=== PATIENT | female | born 1995 | race Hispanic/Latino ===

== ENCOUNTER 2018-06-21 15:04 | Observation (INO) | payer OTHER, MEDICAID ==
[~2018-06-21 15:04] MED LIST: PREN-196 PO; TYL3 PO
[2018-06-21] MEDS ORDERED: LACTATED RINGERS 1000ML 1,000 ML IV SCH (18:00)
[2018-06-22 07:28] LABS: APPEARANCE,URINE Clear (CLEAR); BILIRUBIN,URINE Negative (NEGATIVE); COLOR,URINE Yellow (YELLOW); GLUCOSE, URINE (UA) Negative (NEGATIVE); KETONES,URINE Negative (NEGATIVE); LEUKOCYTE ESTERASE ,URINE Moderate (NEGATIVE); NITRATE,URINE Negative (NEGATIVE); OCCULT BLOOD,URINE Negative (NEGATIVE); PH,URINE 6.5 (5.0-8.0); PROTEIN,URINE Negative (NEGATIVE); UROBILINOGEN,URINE 0.2 mg/dL (0.2-1.0)
[2018-06-22 07:52] LABS: BACTERIA,URINE Moderate /HPF (None Seen); SQUAMOUS EPITHELIAL CELL,UR 30-50 /HPF (0-2)
[2018-06-22 07:53] LABS: RBC,URINE 0-1 /HPF (0-1)
== END 2018-06-22 16:25 | disposition home or self-care (01) ==
LOC: LDH 15:04
PROVIDERS: ADMIT Obstetrics & Gynecology; ATTEND Obstetrics & Gynecology
DX: Z34.93 Encounter for supervision of normal pregnancy, unspecified, third trimester (principal); Z3A.36 36 weeks gestation of pregnancy
CPT/HCPCS: 59025; 76805; 76819; 81001; G0378 ×26; J7120 ×2; 96360; 96361

== ENCOUNTER 2018-06-28 10:30 | Inpatient (IN) | payer OTHER, MEDICAID ==
[~2018-06-28] VITALS: Ht 162.6 cm; Wt 147.4 kg
[2018-07-01 13:36] LABS: HEMATOCRIT 34.2 % (36-48); MEAN CORPUSCULAR HEMOGLOBIN 21.6 pg (27.0-33.0); MEAN CORPUSCULAR HGB CONC 31.3 g/dL (32.0-36.0); NUCLEATED RED BLOOD CELLS 0.1 % (0.0-0.19); PLATELET COUNT (AUTO) 316 K/uL (130-400); RED BLOOD CELL COUNT(AUTO) 4.95 MIL/uL (4.00-5.50); RED CELL DISTRIBUTION WIDTH 17.7 % (11.0-15.5); WHITE BLOOD COUNT (AUTO) 10.8 K/uL (4.8-10.8)
[2018-07-02 05:11] LABS: HEPATITIS Bs ANTIGEN SCREEN P Negative (Negative)
[2018-07-03] VITALS (14 sets, daily range): BP systolic 110–127; BP diastolic 49–70
[2018-07-03] MEDS ORDERED: SODIUM CHLORIDE 0.9% 10 ML VIAL IVP PRN ×2 (05:15→10:00)
[2018-07-03] MEDS ORDERED: LACTATED RINGERS 1000ML 1,000 ML IV SCH (05:15)
[2018-07-03] MEDS ORDERED: DEXTROSE 5 %-0.45 % NACL 1,000 ML IV PRN (05:15)
[2018-07-03] MEDS ORDERED: CEFAZOLIN SODIUM 1 GM VIAL IVP PRN (05:15)
[2018-07-03 05:50] LABS: APPEARANCE,URINE CLOUDY (CLEAR); BILIRUBIN,URINE Negative (NEGATIVE); COLOR,URINE Yellow (YELLOW); GLUCOSE, URINE (UA) Negative (NEGATIVE); KETONES,URINE Negative (NEGATIVE); LEUKOCYTE ESTERASE ,URINE Moderate (NEGATIVE); NITRATE,URINE Negative (NEGATIVE); OCCULT BLOOD,URINE Nonhemolyzed Trace (NEGATIVE); PH,URINE 6.5 (5.0-8.0); PROTEIN,URINE POS 1+ (NEGATIVE)
[2018-07-03 05:55] LABS: BACTERIA,URINE Moderate /HPF (None Seen); MUCUS,URINE Moderate LPF (None Seen); SQUAMOUS EPITHELIAL CELL,UR Many /HPF (0-2)
[2018-07-03] MEDS ORDERED: DURAMORPH PF1 MG/ML 10ML AMP IV ONE (07:08)
[2018-07-03] MEDS ORDERED: CEFAZOLIN SODIUM 1 GM VIAL IVP ONE (07:10)
[2018-07-03] MEDS ORDERED: PHENYLEPHRINE HCL 10 MG/ML 1ML VIAL IV ONE (08:13)
--- NOTE | 2018-07-03 08:55 | NUR ---
FUNDAL MASSAGE PERFORMED, SMALL AMOUNT OF BLOOD NOTED. PT. TOLERATES WELL. Addendum: 07/03/18 at 0857 by VENECIA COLLINS RN RN Amended: Links added.
[2018-07-03] MEDS ORDERED: OXYTOCIN 10 USP UNITS/ML ONE (09:27)
[2018-07-03] MEDS ORDERED: NALOXONE HCL 0.4 MG/1 ML ML IVP PRN ×2 (09:45)
[2018-07-03] MEDS ORDERED: PROMETHAZINE HCL 25 MG/ML 1ML AMPULE IM PRN (09:45)
[2018-07-03] MEDS ORDERED: DiphenhydrAMINE HCL 50 MG/ML VIAL IVP PRN (09:45)
[2018-07-03] MEDS ORDERED: EPHEDRINE SULFATE 50 MG/ML AMPULE IVP PRN (09:45)
[2018-07-03] MEDS ORDERED: ONDANSETRON HCL 4 MG/2 ML 8 MG in SODIUM CHLORIDE 0.9% 50 ML IVP NR (09:45)
[2018-07-03] MEDS ORDERED: METOCLOPRAMIDE 10 MG/2 ML VIAL IVP PRN (09:45)
[2018-07-03] MEDS ORDERED: HYDROCODONE/ACETAMINOPHEN 5/325 MG TAB PO PRN ×2 (09:45)
[2018-07-03] MEDS ORDERED: ONDANSETRON HCL 4 MG/2 ML VIAL IVP PRN ×2 (09:45)
[2018-07-03] MEDS ORDERED: MORPHINE SULFATE 2 MG/ML 1ML SYG IVP PRN (09:45)
[2018-07-03] MEDS: INSULIN HUMULIN R 100 UNIT/ML 3ML SQ SCH ×3 (11:30→21:00)
[2018-07-03] MEDS: SODIUM CHLORIDE 0.9% 1000ML 1,000 ML IV SCH ×2 (17:44→23:07)
[2018-07-04] MEDS: SODIUM CHLORIDE 0.9% 1000ML 1,000 ML IV SCH ×4 (00:45→18:29)
[2018-07-04 00:48] VITALS: BP 128/68
[2018-07-04 05:00] VITALS: BP 103/57
[2018-07-04 05:44] LABS: HEMATOCRIT 28.3 % (36-48); MEAN CORPUSCULAR HEMOGLOBIN 22.6 pg (27.0-33.0); MEAN CORPUSCULAR HGB CONC 32.9 g/dL (32.0-36.0); MEAN CORPUSCULAR VOLUME 68.8 fL (79-99); PLATELET COUNT (AUTO) 259 K/uL (130-400); RED BLOOD CELL COUNT(AUTO) 4.11 MIL/uL (4.00-5.50); RED CELL DISTRIBUTION WIDTH 17.7 % (11.0-15.5); WHITE BLOOD COUNT (AUTO) 9.1 K/uL (4.8-10.8)
[2018-07-04] MEDS: INSULIN HUMULIN R 100 UNIT/ML 3ML SQ SCH ×4 (07:26→21:00)
[2018-07-04] MEDS ORDERED: HYDROCODONE/ACETAMINOPHEN 5/325 MG TAB PO PRN (07:30)
[2018-07-04] MEDS ORDERED: BISACODYL 10 MG SUPP.RECT RC PRN (07:30)
[2018-07-04] MEDS ORDERED: DIPHENHYDRAMINE HCL 25 MG CAPSULE PO PRN (07:30)
[2018-07-04] MEDS ORDERED: ACETAMINOPHEN EXTRA STRENGTH 500 MG TABLET PO PRN (07:30)
[2018-07-04 07:32] VITALS: BP 120/57
--- NOTE | 2018-07-04 08:00 | NUR ---
PHELAN PHELAN REMOVED, CATHETER TIP INTACT, 500mL OF CLEAR PALE YELLOW URINE REMOVED, MELISSA-CARE PROVIDED, DRESSING OVER INCISION REMOVED EXPOSING INCISION w/ DORINA DRY AND INTACT, MELISSA PAD PLACED OVER TO MAINTAIN DRY; ABDOMINAL BINDER PLACED OVER ABDOMEN FOR SUPPORT; SCDs REMOVED, TEDs ADJUSTED; PT OOB TO CHAIR, STEADY GAIT, TOLERATED WELL; RETURN DEMONSTRATION DONE WITH I.S.; POC DISCUSSED, PT VERBALIZED UNDERSTANDING Addendum: 07/04/18 at 1246 by ANDIE MAC RN Amended: Links added.
[2018-07-04] MEDS: ACETAMINOPHEN-CODEINE 300/30MG TAB PO PRN ×3 (08:42→23:13)
[2018-07-04] MEDS: DOCUSATE SODIUM 100 MG CAP PO SCH ×2 (08:43→21:07)
[2018-07-04] MEDS: SIMETHICONE 80 MG TAB.CHEW PO PRN ×4 (08:43→21:07)
[2018-07-04] MEDS: IBUPROFEN 600 MG TABLET PO PRN ×2 (08:43→18:27)
[2018-07-04] MEDS: DIPH,PERTUSS(ACELL),TET VAC/PF 0.5 ML VIAL IM SCH (08:44)
--- NOTE | 2018-07-04 09:45 | NUR ---
ACTIVITY PT AMBULATING HALLWAY, STEADY GAIT, PASSING FLATUS, TOLERATING WELL, PAIN HAS SUBSIDED TO 1 OF 10 ON PAIN SCALE, FEELING COMFORTABLE
[2018-07-04 11:18] VITALS: BP 130/75
[2018-07-04 15:25] VITALS: BP 138/79
--- NOTE | 2018-07-04 16:45 | NUR ---
BLOOD SUGAR PT CHECKED OWN BLOOD GLUCOSE LEVEL, RESULT OF 60, GAVE MILK, JUICE, AND DINNER TRAY
--- NOTE | 2018-07-04 17:52 | NUR ---
ACTIVITY PT AMBULATING HALLWAY, STEADY GAIT, PASSING FLATUS, TOLERATING WELL, WALKED FOR ALMOST 20min
[2018-07-04 21:12] VITALS: BP 113/67
[2018-07-05] VITALS (7 sets, daily range): BP systolic 106–141; BP diastolic 53–94
[2018-07-05] MEDS: SODIUM CHLORIDE 0.9% 1000ML 1,000 ML IV SCH ×2 (01:47→05:43)
[2018-07-05] MEDS: ACETAMINOPHEN-CODEINE 300/30MG TAB PO PRN (04:17)
[2018-07-05] MEDS: DIPH,PERTUSS(ACELL),TET VAC/PF 0.5 ML VIAL IM SCH (05:42)
[2018-07-05] MEDS: INSULIN HUMULIN R 100 UNIT/ML 3ML SQ SCH (06:52)
[2018-07-05] MEDS: SIMETHICONE 80 MG TAB.CHEW PO PRN ×4 (09:26→21:45)
[2018-07-05] MEDS: DOCUSATE SODIUM 100 MG CAP PO SCH ×2 (09:26→21:45)
[2018-07-05] MEDS: IBUPROFEN 600 MG TABLET PO PRN ×2 (09:28→16:09)
--- NOTE | 2018-07-05 12:32 | NUR ---
ACTIVITY PT AMBULATING HALLWAY, STEADY GAIT, PASSING FLATUS, WILL GO TO NURSERY TO VISIT WITH BABY
--- NOTE | 2018-07-05 13:55 | NUR ---
ACTIVITY PT RETURNED FROM NURSERY, AMBULATING WELL, PASSING FLATUS, NO C/O PAIN
[2018-07-06] MEDS: IBUPROFEN 600 MG TABLET PO PRN ×2 (02:31→10:39)
[2018-07-06 04:02] VITALS: BP 120/49
[2018-07-06 07:51] VITALS: BP 138/80
[2018-07-06] MEDS: SIMETHICONE 80 MG TAB.CHEW PO PRN (10:38)
[2018-07-06] MEDS: DOCUSATE SODIUM 100 MG CAP PO SCH (10:38)
[2018-07-06 11:37] VITALS: BP 113/65
[2018-07-06 15:50] VITALS: BP 130/69
--- NOTE | 2018-07-06 19:30 | NUR ---
PATIENT READY TO GO HOME: DISCHARGES INSTRUCTION GIVEN, VERBALIZES UNDERSTANDING. BABY HELD ON MOTHERS ARM DISCHARGES BY RAYNA NURSERY NURSE WITH INSTRUCTION.
[2018-07-06 19:31] VITALS: BP 130/90
--- NOTE | 2018-07-06 19:40 | NUR ---
PATIENT DISCHARGES ACCOMPANIED BY HER SISTER: BABY WAS HELD IN PATIENTS ARM. BROUGHT BY WHEELCHAIR OUTSIDE AND RIDE ON THEIR PRIVATE CAR AND WAS OUT OF THE FACILITY.
== END 2018-07-06 19:40 | disposition home or self-care (01) | DRG 785 ==
LOC: LDH 07-03 05:01 → WSH 07-03 09:05
PROVIDERS: ADMIT Obstetrics & Gynecology; ATTEND Obstetrics & Gynecology
PROC: 10D00Z1 Extraction of Products of Conception, Low, Open Approach (ICD-10-PCS; 2018-07-03)
PROC: 0UB70ZZ Excision of Bilateral Fallopian Tubes, Open Approach (ICD-10-PCS; principal; 2018-07-03 07:42)
PROC: 3E02340 Introduction of Influenza Vaccine into Muscle, Percutaneous Approach (ICD-10-PCS; 2018-07-04)
PROC: 3E0234Z Introduction of Serum, Toxoid and Vaccine into Muscle, Percutaneous Approach (ICD-10-PCS; 2018-07-04)
DX: O24.420 Gestational diabetes mellitus in childbirth, diet controlled (principal); O99.214 Obesity complicating childbirth; O40.3XX0 Polyhydramnios, third trimester, not applicable or unspecified; O34.211 Maternal care for low transverse scar from previous cesarean delivery; O77.0 Labor and delivery complicated by meconium in amniotic fluid; Z30.2 Encounter for sterilization; E66.9 Obesity, unspecified; Z37.0 Single live birth; Z83.3 Family history of diabetes mellitus; Z3A.38 38 weeks gestation of pregnancy; Z23 Encounter for immunization
CPT/HCPCS: 36415; 59510; 81001; 82948; 85027; 86592; 86850; 86900; 86901; 87340; 88302; 90715; A4344; A4450; A4606; G0378; J0690; J2274; J2370; J2405; J2590; J7120; Q2035

== ENCOUNTER 2018-07-18 00:08 | Emergency (ER) | payer OTHER, MEDICAID ==
[2018-07-18 00:53] LABS: APPEARANCE,URINE Cloudy (CLEAR); BILIRUBIN,URINE Negative (NEGATIVE); COLOR,URINE Yellow (YELLOW); GLUCOSE, URINE (UA) Negative (NEGATIVE); KETONES,URINE Negative (NEGATIVE); LEUKOCYTE ESTERASE ,URINE Large (NEGATIVE); NITRATE,URINE Negative (NEGATIVE); OCCULT BLOOD,URINE Large (NEGATIVE); PH,URINE >=9.0 (5.0-8.0); PROTEIN,URINE 300 (NEGATIVE)
[2018-07-18 01:08] LABS: BASOPHILS % (AUTO) 0.5 % (0.0-5.0); EOSINOPHILS % (AUTO) 0.2 % (0.0-8.0); HEMATOCRIT 34.6 % (36-48); LYMPHOCYTES % (AUTO) 10.9 % (21.0-51.0); MEAN CORPUSCULAR HGB CONC 30.1 g/dL (32.0-36.0); MEAN CORPUSCULAR VOLUME 69.7 fL (79-99); MONOCYTES % (AUTO) 4.6 % (3.0-13.0); NEUTROPHILS % (AUTO) 83.8 % (40.0-77.0); PLATELET COUNT (AUTO) 418 K/uL (130-400); RED BLOOD CELL COUNT(AUTO) 4.97 MIL/uL (4.00-5.50); RED CELL DISTRIBUTION WIDTH 18.2 % (11.0-15.5); WHITE BLOOD COUNT (AUTO) 11.9 K/uL (4.8-10.8)
[2018-07-18 01:27] LABS: CREATININE 0.9 mg/dL (0.5-1.5); POTASSIUM 3.8 mmol/L (3.5-5.1)
[2018-07-18 01:32] LABS: BILIRUBIN,TOTAL 0.2 mg/dL (0.2-1.0); TOTAL PROTEIN, SERUM 7.7 g/dL (6.0-8.3)
[2018-07-18 02:00] LABS: BACTERIA,URINE Moderate /HPF (None Seen); MUCUS,URINE Few LPF (None Seen); RBC,URINE 51-100 /HPF (0-1); SQUAMOUS EPITHELIAL CELL,UR Few /HPF (0-2); WBC,URINE TNTC /HPF (0-1)
== END 2018-07-18 02:32 | disposition home or self-care (01) ==
LOC: EDH 00:08
DX: K80.20 Calculus of gallbladder without cholecystitis without obstruction (principal)
CPT/HCPCS: 36415; 76705; 80053; 81001; 82150; 83690; 85025

== ENCOUNTER 2022-06-25 01:03 | Inpatient (IN) | payer MEDICAID, OTHER ==
[~2022-06-25] VITALS: Ht 162.6 cm; Wt 136.5 kg
[2022-06-25] MEDS ORDERED: DIPH1TAB PO (02:16)
[2022-06-25] MEDS ORDERED: GUAI1TBM19 PO (02:16)
[2022-06-25] MEDS ORDERED: IBUP-1493 PO (02:16)
[2022-06-25] MEDS ORDERED: IPRATROPIUM/ALBUTEROL SULFATE 3 ML SOLUTION IH ONE (04:30)
[2022-06-25] MEDS ORDERED: SOLU-MEDROL 125MG VIAL IVP ONE (04:30)
[2022-06-25] MEDS ORDERED: AZITHROMYCIN 250 MG TABLET PO ONE (04:30)
[2022-06-25] MEDS ORDERED: CEFTRIAXONE 1G VIAL IVP ONE (04:30)
[2022-06-25 04:44] LABS: BASOPHILS % (AUTO) 0.4 % (0.0-5.0); EOSINOPHILS % (AUTO) 1.3 % (0.0-8.0); HEMATOCRIT 39.7 % (36-48); MEAN CORPUSCULAR HEMOGLOBIN 27.8 pg (27.0-33.0); MEAN CORPUSCULAR HGB CONC 33.2 g/dL (32.0-36.0); MEAN CORPUSCULAR VOLUME 83.6 fL (79-99); MONOCYTES % (AUTO) 8.4 % (3.0-13.0); NEUTROPHILS % (AUTO) 66.8 % (40.0-77.0); PLATELET COUNT (AUTO) 193 K/uL (130-400); RED BLOOD CELL COUNT(AUTO) 4.75 MIL/uL (4.00-5.50); RED CELL DISTRIBUTION WIDTH 14.4 % (11.0-15.5); WHITE BLOOD COUNT (AUTO) 6.9 K/uL (4.8-10.8)
[2022-06-25 04:55] LABS: CREATININE 0.7 mg/dL (0.5-1.5); POTASSIUM 3.6 mmol/L (3.5-5.1)
[2022-06-25 05:00] LABS: ALBUMIN 3.4 g/dL (3.5-5.0); TOTAL PROTEIN, SERUM 7.8 g/dL (6.0-8.3)
[2022-06-25] MEDS ORDERED: IOHEXOL 350 MG/ML 100ML INFUS..BTL IV ONE (06:38)
[2022-06-25] MEDS ORDERED: ONDANSETRON 4MG INJ IVP PRN (08:30)
[2022-06-25] MEDS ORDERED: ACETAMINOPHEN 500 MG TABLET PO PRN (08:30)
[2022-06-25] MEDS ORDERED: IPRATROPIUM/ALBUTEROL SULFATE 3 ML SOLUTION IH PRN (08:30)
[2022-06-25 09:15] LABS: ABG BASE EXCESS -1.3 mmol/L (-2.0-3.0); ABG OXYGEN SATURATION 94.7 % (95.0-99.0); ABG PCO2 38 mmHg (32-45)
[2022-06-25 09:18] LABS: APPEARANCE,URINE CLEAR (CLEAR); BILIRUBIN,URINE NEGATIVE (NEGATIVE); COLOR,URINE YELLOW (YELLOW); GLUCOSE, URINE (UA) NEGATIVE (NEGATIVE); KETONES,URINE >=80 mg/dL (NEGATIVE); LEUKOCYTE ESTERASE ,URINE NEGATIVE Leu/uL (NEGATIVE); NITRATE,URINE NEGATIVE (NEGATIVE); OCCULT BLOOD,URINE SMALL (NEGATIVE); PROTEIN,URINE NEGATIVE (NEGATIVE); UROBILINOGEN,URINE 0.2 mg/dL (0.2-1.0)
[2022-06-25 09:23] LABS: SQUAMOUS EPITHELIAL CELL,UR RARE /HPF (0-2); WBC,URINE 0-1 /HPF (0-1)
[2022-06-25] MEDS: DOXYCYCLINE 100MG+NS 250ML IV SCH ×2 (09:27→20:32)
[2022-06-25] MEDS: CETIRIZINE HCL 5 MG TABLET PO SCH (09:27)
[2022-06-25] MEDS: Vitamin B Complex/Vit C/Folic Acid PO SCH (09:27)
[2022-06-25] MEDS: PANTOPRAZOLE 40 MG/VIAL IVP SCH (09:27)
[2022-06-25] MEDS: BUDESONIDE 0.5 MG/2 ML INH IH SCH ×2 (09:28→18:49)
[2022-06-25 09:36] LABS: HEMOGLOBIN A1C 6.5 % (4.0-6.0)
[2022-06-25 09:43] LABS: CRP QUANTITATIVE 49.6 mg/L (0.00-9.0); THYROID STIMULATING HORMONE 0.47 uIU/mL (0.36-3.74)
[2022-06-25 11:20] VITALS: BP 134/82
[2022-06-25] MEDS ORDERED: 0.9%NACL 100ML 100 ML ONE (14:07)
[2022-06-25] MEDS: CEFTRIAXONE 2GM VIAL IVPB SCH (14:08)
[2022-06-25] MEDS: LACTATED RINGERS 1000ML 1,000 ML IV SCH ×2 (14:08→21:50)
[2022-06-25 16:30] VITALS: BP 131/70
[2022-06-25 19:06] VITALS: BP 114/64
[2022-06-25] MEDS: ENOXAPARIN SODIUM 40 MG/0.4 ML SYRINGE SQ SCH (20:32)
[2022-06-26 00:06] VITALS: BP 124/73
[2022-06-26 03:06] VITALS: BP 119/64
[2022-06-26 05:06] LABS: BASOPHILS % (AUTO) 0.2 % (0.0-5.0); EOSINOPHILS % (AUTO) 0.1 % (0.0-8.0); HEMATOCRIT 38.4 % (36-48); LYMPHOCYTES % (AUTO) 19.7 % (21.0-51.0); MEAN CORPUSCULAR HEMOGLOBIN 27.7 pg (27.0-33.0); MEAN CORPUSCULAR HGB CONC 32.6 g/dL (32.0-36.0); MONOCYTES % (AUTO) 7.6 % (3.0-13.0); NEUTROPHILS % (AUTO) 72.1 % (40.0-77.0); PLATELET COUNT (AUTO) 223 K/uL (130-400); RED BLOOD CELL COUNT(AUTO) 4.52 MIL/uL (4.00-5.50); RED CELL DISTRIBUTION WIDTH 14.4 % (11.0-15.5); WHITE BLOOD COUNT (AUTO) 11.7 K/uL (4.8-10.8)
[2022-06-26 05:34] LABS: CREATININE 0.6 mg/dL (0.5-1.5); CRP QUANTITATIVE 28.1 mg/L (0.00-9.0); MAGNESIUM 1.9 mg/dL (1.80-2.40); TOTAL PROTEIN, SERUM 7.4 g/dL (6.0-8.3)
[2022-06-26 07:34] VITALS: BP 131/77
[2022-06-26] MEDS ORDERED: 0.9% NACL 250ML 250 ML ONE (08:25)
[2022-06-26] MEDS: DOXYCYCLINE 100MG+NS 250ML IV SCH ×2 (08:33→20:41)
[2022-06-26] MEDS: CETIRIZINE HCL 5 MG TABLET PO SCH (08:34)
[2022-06-26] MEDS: Vitamin B Complex/Vit C/Folic Acid PO SCH (08:34)
[2022-06-26] MEDS: PANTOPRAZOLE 40 MG/VIAL IVP SCH (08:35)
[2022-06-26] MEDS: ENOXAPARIN SODIUM 40 MG/0.4 ML SYRINGE SQ SCH (08:35)
[2022-06-26] MEDS: LACTATED RINGERS 1000ML 1,000 ML IV SCH (08:36)
[2022-06-26] MEDS ORDERED: 0.9%NACL 100ML 100 ML ONE (11:37)
[2022-06-26 11:45] VITALS: BP 131/75
[2022-06-26] MEDS: CEFTRIAXONE 2GM VIAL IVPB SCH (11:49)
[2022-06-26 16:08] VITALS: BP 117/75
[2022-06-26] MEDS: BUDESONIDE 0.5 MG/2 ML INH IH SCH (18:47)
[2022-06-26 19:15] VITALS: BP_SYST 115; BP_SYST 118; BP_DIAS 46; BP_DIAS 62
[2022-06-27 00:15] VITALS: BP 95/54
[2022-06-27 04:08] VITALS: BP 143/60
[2022-06-27] MEDS: BUDESONIDE 0.5 MG/2 ML INH IH SCH (07:38)
[2022-06-27 08:15] VITALS: BP 119/77
[2022-06-27] MEDS ORDERED: 0.9% NACL 250ML 250 ML ONE (09:38)
[2022-06-27] MEDS: Vitamin B Complex/Vit C/Folic Acid PO SCH (09:40)
[2022-06-27] MEDS: CETIRIZINE HCL 5 MG TABLET PO SCH (09:40)
[2022-06-27] MEDS: PANTOPRAZOLE 40 MG/VIAL IVP SCH (09:42)
[2022-06-27] MEDS: DOXYCYCLINE 100MG+NS 250ML IV SCH (09:44)
[2022-06-27] MEDS: ENOXAPARIN SODIUM 40 MG/0.4 ML SYRINGE SQ SCH (09:45)
[2022-06-27] MEDS ORDERED: DOXY100C5 PO (10:37)
[2022-06-27] MEDS ORDERED: AMOX-426 PO (10:37)
[2022-06-27] MEDS ORDERED: METF-444 PO (10:37)
[2022-06-27] MEDS: CEFTRIAXONE 2GM VIAL IVPB SCH (11:09)
[2022-06-27 11:39] VITALS: BP 122/75
[2022-06-27] MEDS ORDERED: ZOSYN 3.375GM +NS 50ML IV SCH (12:00)
[2022-06-27] MEDS ORDERED: PANTOPRAZOLE 40 MG/VIAL IVP SCH (21:00)
== END 2022-06-27 15:55 | disposition home or self-care (01) | DRG 194 ==
LOC: EDH 01:03 → EDHIP 08:28 → 2DH 11:20
PROVIDERS: ADMIT Internal Medicine; ATTEND Internal Medicine
DX: J18.9 Pneumonia, unspecified organism (principal); E66.2 Morbid (severe) obesity with alveolar hypoventilation; Z68.43 Body mass index [BMI] 50.0-59.9, adult; Z20.822 Contact with and (suspected) exposure to COVID-19; K75.9 Inflammatory liver disease, unspecified; E11.9 Type 2 diabetes mellitus without complications; E86.0 Dehydration; K76.0 Fatty (change of) liver, not elsewhere classified; Z86.32 Personal history of gestational diabetes; Z90.49 Acquired absence of other specified parts of digestive tract
CPT/HCPCS: 36415; 36600; 71045; 71046; 71275; 76705; 80053; 81001; 82550; 82803; 83036; 83605; 83735; 84145; 84443; 84484; 84703; 85025; 85651; 86140; 86738; 87040; 87071; 87205; 87420; 87449; 87635; 87804; 94640; 94664; C9113; C9803; G0378; J0696; J1650; J2543; J2930; J3490; J7050; J7120; Q9967

== ENCOUNTER 2023-08-28 02:05 | Emergency (ER) | payer OTHER ==
[~2023-08-28] VITALS: Ht 165.1 cm; Wt 138.3 kg
[~2023-08-28 02:05] MED LIST changes: +AMOX-426 PO; +DOXY100C5 PO; +METF-444 PO; -PREN-196 PO; -TYL3 PO
[2023-08-28 02:31] LABS: RAPID GROUP A STREP negative (NEGATIVE)
[2023-08-28 02:36] LABS: SARS-CoV-2, RNA, NAAT POSITIVE SARS CoV-2 (NEGATIVE)
[2023-08-28 02:41] LABS: INFLUENZA TYPE A Negative For Type A (NEGATIVE)
[2023-08-28 02:47] LABS: INFLUENZA TYPE B Positive For Type B (NEGATIVE)
[2023-08-28] MEDS ORDERED: NIRM1TAB9 PO (03:06)
[2023-08-28] MEDS ORDERED: IBUP-1493 PO (03:06)
[2023-08-28 03:13] VITALS: BP 142/74; PULSE 119; RESP 16; O2SAT 100
== END 2023-08-28 03:21 | disposition home or self-care (01) ==
LOC: EDH 02:05
DX: U07.1 COVID-19 (principal); J10.1 Influenza due to other identified influenza virus with other respiratory manifestations; Z79.84 Long term (current) use of oral hypoglycemic drugs; Z79.899 Other long term (current) drug therapy; Z90.49 Acquired absence of other specified parts of digestive tract; Z98.890 Other specified postprocedural states
CPT/HCPCS: 87635; 87804; 87880